=== PATIENT | male | born 1955 | race Caucasian/White ===

== ENCOUNTER 2023-09-17 18:53 | Emergency (ER) | payer MEDICARE, OTHER ==
[~2023-09-17] VITALS: Ht 180.3 cm; Wt 108.9 kg
[2023-09-17] MEDS ORDERED: GEMFIBROZIL600 MG PO (19:06)
[2023-09-17] MEDS ORDERED: AMLODIPINE BESY10 MG PO (19:06)
[2023-09-17] MEDS ORDERED: ALLOPURINOL300 MG PO (19:06)
[2023-09-17 19:17] LABS: BASO # 0.1 10*3/uL (0.0-0.1); BASO % 0.6 % (0.0-1.0); EOS # 0.1 10*3/uL (0.0-0.4); EOS % 1.4 % (1.0-4.0); HEMATOCRIT 43.1 % (42.0-52.0); LYMPH # 1.8 10*3/uL (1.3-4.4); LYMPH % 22.9 % (27.0-41.0); MEAN CELL VOLUME 95.1 fl (80.0-94.0); MEAN CORPUSCULAR HGB 33.1 pg (27.0-31.0); MEAN CORPUSCULAR HGB CONC 34.8 g/dl (33.0-37.0); MEAN PLATELET VOLUME 9.9 fl (9.6-12.3); MONO % 12.8 % (3.0-9.0); PLATELET COUNT AUTOMATED 209 10*3/uL (130-400); RED BLOOD COUNT 4.53 10*6/uL (4.50-5.90); RED CELL DISTRI WIDTH 12.5 % (0-14.5)
[2023-09-17 19:43] LABS: ALKALINE PHOSPHATASE 68 U/L (46-116); BUN 16 mg/dl (9-23); CHLORIDE 105 mmol/L (98-107); POTASSIUM 3.9 mmol/L (3.4-5.1); SGPT/ALT 40 U/L (5-49); TOTAL PROTEIN 7.8 gm/dL (6.0-8.0)
[2023-09-17] MEDS ORDERED: methylPREDNISolone sod succ 125 MG VIAL IM ONE (22:20)
== END 2023-09-17 22:34 | disposition home or self-care (01) ==
LOC: ED 18:53
PROVIDERS: Internal Medicine
DX: R07.89 Other chest pain (principal); M54.9 Dorsalgia, unspecified

== ENCOUNTER 2023-12-08 01:25 | Emergency (ER) | payer MEDICARE, OTHER ==
[~2023-12-08] VITALS: Ht 182.8 cm; Wt 108.9 kg
[~2023-12-08 01:25] MED LIST: ALLOPURINOL300 MG PO; AMLODIPINE BESY10 MG PO; GEMFIBROZIL600 MG PO
[2023-12-08] MEDS ORDERED: NAPROXEN250 MG PO (04:57)
[2023-12-08] MEDS ORDERED: METHOCARBAMOL750 M1 PO (04:57)
== END 2023-12-08 05:05 | disposition home or self-care (01) ==
LOC: ED 01:25
DX: S39.012A Strain of muscle, fascia and tendon of lower back, initial encounter (principal); S30.1XXA Contusion of abdominal wall, initial encounter; Z79.899 Other long term (current) drug therapy; W18.09XA Striking against other object with subsequent fall, initial encounter; Y93.89 Activity, other specified; Y92.89 Other specified places as the place of occurrence of the external cause; Y99.8 Other external cause status